=== PATIENT | male | born 1990 ===

== ENCOUNTER 2021-04-21 00:08 | Emergency (ER) | payer SELFPAY ==
--- NOTE | 2021-04-21 01:10 | XRay Report ---
CHEST 2 VIEWS INDICATION / CLINICAL INFORMATION: Cough and congestion. COMPARISON: None available. FINDINGS: SUPPORT DEVICES: None. HEART / MEDIASTINUM: The heart size and pulmonary vasculature are normal. LUNGS / PLEURA: There are minimal subsegmental parenchymal opacities in the periphery of both lungs, greater on the left. No pleural effusion. No pneumothorax. ADDITIONAL FINDINGS: No significant additional findings. IMPRESSION: Minimal patchy subsegmental peripheral parenchymal opacities bilaterally are nonspecific. Differential diagnosis includes subsegmental atelectasis and atypical causes of pneumonia. Signer Name: Jesus Mcclelland MD Signed: 04/21/2021 1:06 AM Workstation Name: [id number]
[2021-04-21 05:08] VITALS: BP 118/70
--- NOTE | 2021-04-21 06:11 | Emergency Department Report ---
ED General Adult HPI - General Chief complaint: Abdominal Pain Stated complaint: ABDOMINAL PAIN Time Seen by Provider: 04/21/21 00:21 Source: patient Mode of arrival: Ambulatory Limitations: No Limitations - History of Present Illness Initial comments: No problem 30-year-old male presents emerged [facility] complaining of a few day history of cough congestion coryza with fever sensations off and on associated with occasional diarrhea and gastrointestinal cramping that radiates across the stomach and up started a couple days after the respiratory symptoms have began. He reports being in close contact with the coronavirus via his cousin and he himself is not yet been vaccinated. -: Gradual Radiation: non-radiation Severity scale (0 -10): 0 Quality: dull Improves with: none Worsens with: none Associated Symptoms: denies other symptoms Treatments Prior to Arrival: none - Related Data Previous Rx's Medication Instructions Recorded Last Taken Type Albuterol Mdi (or & Nicu Only) 2 puff IH QID PRN #8.5 gram 04/21/21 Unknown Rx [ProAir HFA Inhaler] Azithromycin [Zithromax Tri-Wilfredo] 500 mg PO DAILY #3 tablet 04/21/21 Unknown Rx predniSONE [Deltasone] 20 mg PO QDAY #5 tab 04/21/21 Unknown Rx Allergies Allergy/AdvReac Type Severity Reaction Status Date / Time No Known Allergies Allergy Verified 04/21/21 05:00 ED Review of Systems ROS: Stated complaint: ABDOMINAL PAIN Other details as noted in HPI Comment: All other systems reviewed and negative ED Past Medical Hx - Medications Home Medications: Home Medications Medication Instructions Recorded Confirmed Last Taken Type Albuterol Mdi (or & Nicu Only) 2 puff IH QID PRN #8.5 gram 04/21/21 Unknown Rx [ProAir HFA Inhaler] Azithromycin [Zithromax Tri-Wilfredo] 500 mg PO DAILY #3 tablet 04/21/21 Unknown Rx predniSONE [Deltasone] 20 mg PO QDAY #5 tab 04/21/21 Unknown Rx ED Physical Exam - General Limitations: No Limitations General appearance: alert, in no apparent distress - Head Head exam: Present: atraumatic, normocephalic - Eye Eye exam: Present: normal appearance, PERRL, EOMI Pupils: Present: normal accommodation - ENT ENT exam: Present: normal exam, normal orophraynx, mucous membranes moist - Neck Neck exam: Present: normal inspection, full ROM - Respiratory Respiratory exam: Present: normal lung sounds bilaterally. Absent: respiratory distress, wheezes, rales, chest wall tenderness, accessory muscle use - Cardiovascular Cardiovascular Exam: Present: regular rate, normal rhythm. Absent: tachycardia, systolic murmur, diastolic murmur, rubs, gallop - GI/Abdominal GI/Abdominal exam: Present: soft, normal bowel sounds. Absent: tenderness, guarding, rebound, hyperactive bowel sounds, hypoactive bowel sounds, organomegaly, mass - Rectal Rectal exam: Present: deferred - Extremities Exam Extremities exam: Present: normal inspection, full ROM, normal capillary refill. Absent: pedal edema - Back Exam Back exam: Present: normal inspection. Absent: CVA tenderness (R), CVA tenderness (L) - Neurological Exam Neurological exam: Present: alert, oriented X3, CN II-XII intact, normal gait - Psychiatric Psychiatric exam: Present: normal affect, normal mood - Skin Skin exam: Present: warm, dry, intact, normal color. Absent: rash, cyanosis, diaphoretic ED Course Vital Signs 04/21/21 04/21/21 00:13 05:07 Temperature 98.9 F 99.2 F Pulse Rate 102 H 83 Respiratory 20 16 Rate Blood Pressure 123/85 118/70 [Right] O2 Sat by Pulse 100 99 Oximetry ED Medical Decision Making - Radiology Data Radiology results: report reviewed [address] [address] XRay Report Signed Patient: VERONA WINSLOW MR#: [id number] 8 : 1990 Acct:[id number] Age/Sex: 30 / M ADM Date: 04/21/21 Loc: ED Attending Dr: Ordering Physician: LEIGH ANN INFANTE Date of Service: 04/21/21 Procedure(s): XR chest routine 2V Accession Number(s): [id number] cc: LEIGH ANN INFANTE Fluoro Time In Minutes: CHEST 2 VIEWS INDICATION / CLINICAL INFORMATION: Cough and congestion. COMPARISON: None available. FINDINGS: SUPPORT DEVICES: None. HEART / MEDIASTINUM: The heart size and pulmonary vasculature are normal. LUNGS / PLEURA: There are minimal subsegmental parenchymal opacities in the periphery of both lungs, greater on the left. No pleural effusion. No pneumothorax. ADDITIONAL FINDINGS: No significant additional findings. IMPRESSION: Minimal patchy subsegmental peripheral parenchymal opacities bilaterally are nonspecific. Differential diagnosis includes subsegmental atelectasis and atypical causes of pneumonia. Signer Name: Jesus Mcclelland MD Signed: 04/21/2021 1:06 AM Workstation Name: [id number] Transcribed By: RT Dictated By: Jesus Mcclelland MD Electronically Authenticated By: Jesus Mcclelland MD Signed Date/Time: 04/21/21105 DD/ 4 TD/TT: - Medical Decision Making This patient presents to the emergency department with fever and lower respiratory symptoms concerning for viral syndrome including flu and COVID-19. Patient has suspicion and is for COVID-19 infection. Differential diagnosis includes other viral causes of lower respiratory symptoms, pneumonia, asthma, bronchitis. Patient is well-appearing with acceptable vitals, lacks comorbidities admission and a reassuring physical examination and is safe to be discharged home nasal swab for COVID testing is recommended. Provide strict return precautions and instructions on self isolation/quarantine and anticipatory guidance. Maintains normal saturation with ambulation satting at 99% or better Critical care attestation.: If time is entered above; I have spent that time in minutes in the direct care of this critically ill patient, excluding procedure time. ED Disposition Clinical Impression: Pneumonia, COVID-19 vaccine series not completed Disposition: 01 HOME / SELF CARE / HOMELESS Is pt being admited?: No Does the pt Need Aspirin: No Condition: Stable Instructions: COVID-19 Frequently Asked Questions, COVID-19, COVID-19: How to Protect Yourself and Others - CDC, Community-Acquired Pneumonia, Adult, [id number], Prevent the Spread of COVID-19 if You Are Sick - CDC, Bacterial Pneumonia (ED) Additional Instructions: You have been evaluated in the emergency department with fever and lower respiratory symptoms concerning for viral syndrome including flu and COVID-19. Patient is a suspicion for COVID-19 infection recommended to follow-up with the testing site and receive a PCR test to confirm likelihood for the coronavirus. Prescriptions: predniSONE [Deltasone] 20 mg PO QDAY #5 tab Albuterol Mdi (or & Nicu Only) [ProAir HFA Inhaler] 2 puff IH QID PRN #8.5 gram PRN Reason: Shortness Of Breath Azithromycin [Zithromax Tri-Wilfredo] 500 mg PO DAILY #3 tablet Referrals: [facility] [Provider Group] - 3-5 Days PRIMARY CARE, [Primary Care Provider] - 3-5 Days
== END 2021-04-21 06:05 | disposition home or self-care (01) ==
LOC: ED 00:08
DX: J18.9 Pneumonia, unspecified organism (principal); Z79.899 Other long term (current) drug therapy
CPT/HCPCS: 71046; 99283